=== PATIENT | male | born 1965 | race Caucasian/White ===

== ENCOUNTER → 2018-09-19 | Outpatient (CLI) | payer OTHER, MEDICARE | END | disposition home or self-care (01) | LOC: RAD 12:04 | PROVIDERS: ATTEND Family Medicine | DX: M51.16 Intervertebral disc disorders with radiculopathy, lumbar region (principal); M48.07 Spinal stenosis, lumbosacral region; M47.27 Other spondylosis with radiculopathy, lumbosacral region | CPT/HCPCS: 72148 ==

== ENCOUNTER 2018-09-23 13:24 | Inpatient (IN) | payer OTHER, MEDICARE ==
[~2018-09-23] VITALS: Ht 175.3 cm; Wt 141.4 kg
--- NOTE | 2018-09-23 13:46 | NUR ---
TASK RN - PT PRESENTS TO ED C/O WORSENING LEG PAIN AND WEAKNESS. PT HAS HX OF BACK SURGERY, PT WITH CHRISTIANO LOW. PT STATES HE SLIPPED ON THE ICE AND FELL HURTING HIS BACK, PAIN, WEAKNESS AND SENSATION HAS BEEN WORSENING SINCE. REFERRED TO MD BY CHRISTIANO LOW. PT HAD MRI DONE 5 DAYS AGO THROUGH [facility] [place]. PT HAS BEEN AMBULATING WITH CRUTCHES SINCE FALL.
[2018-09-23] MEDS ORDERED: OXYcodone/APAP 7.5/325MG TABLET PO ONE (14:00)
[2018-09-23] MEDS ORDERED: OXYcodone/APAP 7.5/325MG TABLET ONE (14:08)
--- NOTE | 2018-09-23 14:33 | NUR ---
Provided medication per EMAR. Placed PIV for MRI. Rep for pt's pacemaker contacted by Brad SHAFFER, will be at hospital approximately at 1500. MRI states ED RN needs to be at bedside during MRI when pacemaker is turned off. ED charge loader aware.
--- NOTE | 2018-09-23 15:36 | NUR ---
Pt transported to MRI ambulatory by MRI staff. ED RN not notified prior. Rep. for pt's AED is with pt, ED RN and ED staff not notified. Pt at MRI. ED RN to be with pt at MRI for monitoring.
[2018-09-23] MEDS ORDERED: GADOBUTROL 10 MMOL/10 ML PFS ONE (16:04)
--- NOTE | 2018-09-23 16:16 | NUR ---
Pt back to ED from MRI. DUTCH. Reconnecting pt to all monitors. All safety measures in place. Call light within reach.
[2018-09-23] MEDS ORDERED: VERA120C4 PO (16:34)
[2018-09-23] MEDS ORDERED: METO25TA35 PO (16:34)
[2018-09-23] MEDS ORDERED: FURO80TA3 PO (16:34)
[2018-09-23] MEDS ORDERED: LEVO75TA5 PO (16:40)
[2018-09-23] MEDS ORDERED: LOSA50TA14 PO (16:40)
[2018-09-23] MEDS ORDERED: ALLO300T PO (16:40)
[2018-09-23] MEDS ORDERED: AMIO100T4 PO (16:40)
[2018-09-23] MEDS ORDERED: GLIP5TAB10 PO (16:40)
[2018-09-23] MEDS ORDERED: ATOR40TA78 PO (16:40)
[2018-09-23] MEDS ORDERED: SPIR25TA5 PO (16:40)
--- NOTE | 2018-09-23 18:07 | NUR ---
Pt resting on guamisha. NADN. No needs requested. All safety measures in place. Call light within reach.
[2018-09-23] MEDS ORDERED: methylPREDNISolone SOD SUCC 40 MG/ML ONE (18:25)
[2018-09-23] MEDS ORDERED: SODIUM CHLORIDE FLUSH 10ML SYR IVF ONE (18:30)
[2018-09-23] MEDS ORDERED: methylPREDNISolone SOD SUCC 40 MG/ML IV SCH (18:30)
[2018-09-23 18:36] LABS: BASOPHILS # (AUTO) 0.18 x10^3/uL (0-0.1); BASOPHILS % (AUTO) 2 % (0-1); EOSINOPHILS # (AUTO) 0.24 x10^3/uL (0-0.4); EOSINOPHILS % (AUTO) 2 % (1-7); LYMPHOCYTES # (AUTO) 3.54 x10^3/uL (1-3.4); LYMPHOCYTES % (AUTO) 32 % (22-44); MD NO; MEAN CORPUSCULAR HEMOGLOBIN 32.3 pg (27.5-34.5); MEAN CORPUSCULAR HGB CONC 34.3 g/dL (33.2-36.2); MEAN CORPUSCULAR VOLUME 94.2 fL (81-97); MEAN PLATELET VOLUME 8.2 fL (7.4-10.4); MONOCYTES # (AUTO) 0.99 x10^3/uL (0.2-0.8); MONOCYTES % (AUTO) 9 % (2-9); NEUTROPHILS # (AUTO) 6.07 x10^3/uL (1.8-6.8); NEUTROPHILS % (AUTO) 55 % (42-75); PLATELET COUNT 323 x10^3/uL (130-400); RED BLOOD COUNT 4.89 x10^6/uL (4.38-5.82); RED CELL DISTRIBUTION WIDTH 14.4 % (9.4-14.8)
[2018-09-23 18:47] LABS: ALBUMIN 4.1 g/dL (3.4-5.0); ANION GAP 6 mmol/L (5-15); CALCIUM 9.3 mg/dL (8.5-10.1); CHLORIDE 103 mmol/L (98-107); CREATININE 1.32 mg/dL (0.7-1.3)
[2018-09-23] MEDS ORDERED: methylPREDNISolone SOD SUCC 40 MG/ML IV ONE (19:00)
[2018-09-23] MEDS ORDERED: LIDODERM 5% PATCH TD PRN (19:00)
[2018-09-23] MEDS ORDERED: ONDANSETRON 2MG/ML, 2ML IVPush PRN (19:00)
[2018-09-23] MEDS ORDERED: LABETALOL 5 MG/ML SYRINGE IVPush PRN (19:00)
[2018-09-23] MEDS ORDERED: DOCUSATE 100 MG CAPSULE PO PRN (19:00)
[2018-09-23] MEDS ORDERED: BISACODYL 10 MG SUPP PR PRN (19:00)
[2018-09-23] MEDS ORDERED: ACETAMINOPHEN 325 MG TABLET PO PRN (19:00)
--- NOTE | 2018-09-23 19:17 | NUR ---
pt resting on britt amato needs, monitors in place, sideraisl up x2, call light within reach. Addendum: 09/23/18 at 1918 by AUSTYN pt awaiting room to be cleaned for transfer to floor
[2018-09-23 19:50] VITALS: BP 129/77
[2018-09-23] MEDS ORDERED: LABETALOL 20 MG/4 ML IVPush PRN (20:30)
[2018-09-23] MEDS: ATORVASTATIN 40 MG TABLET PO SCH (22:30)
[2018-09-23] MEDS ORDERED: TEMAZEPAM 15 MG CAPSULE PO PRN (22:30)
[2018-09-23] MEDS: INSULIN LISPRO 100 UNITS/ML, PEN SQ-INSULIN SCH (22:31)
[2018-09-24 01:38] VITALS: BP 145/77
[2018-09-24] MEDS: OXYcodone/APAP 5/325MG TABLET PO PRN ×3 (01:56→20:52)
[2018-09-24 05:08] LABS: BASOPHILS # (AUTO) 0.01 x10^3/uL (0-0.1); BASOPHILS % (AUTO) 0 % (0-1); EOSINOPHILS % (AUTO) 0 % (1-7); LYMPHOCYTES # (AUTO) 0.98 x10^3/uL (1-3.4); LYMPHOCYTES % (AUTO) 14 % (22-44); MD NO; MEAN CORPUSCULAR HEMOGLOBIN 32.3 pg (27.5-34.5); MEAN CORPUSCULAR HGB CONC 34.1 g/dL (33.2-36.2); MEAN CORPUSCULAR VOLUME 94.8 fL (81-97); MEAN PLATELET VOLUME 8.1 fL (7.4-10.4); MONOCYTES # (AUTO) 0.12 x10^3/uL (0.2-0.8); MONOCYTES % (AUTO) 2 % (2-9); NEUTROPHILS # (AUTO) 5.89 x10^3/uL (1.8-6.8); NEUTROPHILS % (AUTO) 84 % (42-75); PLATELET COUNT 280 x10^3/uL (130-400); RED BLOOD COUNT 4.77 x10^6/uL (4.38-5.82); RED CELL DISTRIBUTION WIDTH 14.5 % (9.4-14.8)
[2018-09-24 05:19] LABS: ANION GAP 7 mmol/L (5-15); CALCIUM 9.3 mg/dL (8.5-10.1); CHLORIDE 104 mmol/L (98-107)
[2018-09-24 05:20] LABS: CREATININE 1.17 mg/dL (0.7-1.3)
[2018-09-24] MEDS: INSULIN LISPRO 100 UNITS/ML, PEN SQ-INSULIN SCH ×4 (07:08→21:04)
[2018-09-24 07:11] VITALS: BP 131/76
[2018-09-24] MEDS ORDERED: METOPROLOL TARTRATE 25 MG TABLET PO SCH (09:00)
[2018-09-24] MEDS ORDERED: VERAPAMIL ER 120MG TABLET.ER PO SCH (09:00)
[2018-09-24] MEDS: AMIODARONE 200 MG TABLET PO SCH (09:30)
[2018-09-24] MEDS ORDERED: ACETAMINOPHEN 325 MG TABLET PO PRN (09:30)
[2018-09-24] MEDS: FUROSEMIDE 80 MG TABLET PO SCH (09:31)
[2018-09-24] MEDS: SPIRONOLACTONE 25 MG TABLET PO SCH (09:31)
[2018-09-24] MEDS: ALLOPURINOL 300 MG TABLET PO SCH (09:31)
[2018-09-24] MEDS: GABAPENTIN 300 MG CAPSULE PO SCH ×3 (09:31→20:53)
[2018-09-24] MEDS: LOSARTAN 50MG TABLET PO SCH (09:32)
[2018-09-24] MEDS: LEVOTHYROXINE 75 MCG TABLET PO SCH (09:41)
[2018-09-24] MEDS ORDERED: methylPREDNISolone 4mg DOSE PACK ONE (10:52)
[2018-09-24 14:17] VITALS: BP 152/75
[2018-09-24 17:14] VITALS: BP 146/78
[2018-09-24] MEDS: CARVEDILOL 12.5 MG TABLET PO SCH (17:16)
[2018-09-24] MEDS ORDERED: CARVEDILOL 6.25 MG TABLET PO SCH (18:00)
[2018-09-24 20:29] VITALS: BP 123/68
[2018-09-24] MEDS: ATORVASTATIN 40 MG TABLET PO SCH (20:53)
[2018-09-24] MEDS ORDERED: INSU100V8 SQ (21:06)
[2018-09-24] MEDS: INSULIN GLARGINE 100 UNITS/ML, PEN SQ-INSULIN SCH (22:44)
[2018-09-25 01:41] VITALS: BP 145/71
[2018-09-25 05:42] LABS: HEMOGLOBIN A1C 7.3 % (4.2-6.3)
[2018-09-25] MEDS: CARVEDILOL 12.5 MG TABLET PO SCH ×2 (06:31→18:15)
[2018-09-25 06:32] VITALS: BP 130/67
[2018-09-25] MEDS: LEVOTHYROXINE 75 MCG TABLET PO SCH (06:32)
[2018-09-25] MEDS: INSULIN LISPRO 100 UNITS/ML, PEN SQ-INSULIN SCH ×4 (07:20→21:21)
[2018-09-25] MEDS: AMIODARONE 200 MG TABLET PO SCH (08:50)
[2018-09-25] MEDS: SPIRONOLACTONE 25 MG TABLET PO SCH (08:50)
[2018-09-25] MEDS: GABAPENTIN 300 MG CAPSULE PO SCH ×3 (08:51→21:20)
[2018-09-25] MEDS: ALLOPURINOL 300 MG TABLET PO SCH (08:51)
[2018-09-25] MEDS: LOSARTAN 50MG TABLET PO SCH (08:51)
[2018-09-25] MEDS: FUROSEMIDE 80 MG TABLET PO SCH (08:51)
[2018-09-25 10:22] LABS: INTERNATIONAL NORMALIZED RATIO 0.98 (0.93-1.1); PROTHROMBIN TIME 10.3 Seconds (9.6-11.5)
[2018-09-25 10:23] LABS: ANION GAP 9 mmol/L (5-15); CALCIUM 8.7 mg/dL (8.5-10.1); CHLORIDE 104 mmol/L (98-107); CREATININE 1.06 mg/dL (0.7-1.3)
[2018-09-25 12:44] LABS: MICROSCOPIC NOT IND
[2018-09-25 13:53] VITALS: BP 162/91
[2018-09-25] MEDS: OXYcodone/APAP 5/325MG TABLET PO PRN ×2 (13:56→21:19)
[2018-09-25 19:44] VITALS: BP 146/64
[2018-09-25] MEDS ORDERED: TEMAZEPAM 15 MG CAPSULE ONE (21:11)
[2018-09-25] MEDS: ATORVASTATIN 40 MG TABLET PO SCH (21:20)
[2018-09-25] MEDS: TEMAZEPAM 30 MG CAPSULE PO PRN (21:20)
[2018-09-25] MEDS: INSULIN GLARGINE 100 UNITS/ML, PEN SQ-INSULIN SCH (21:21)
[2018-09-26 03:17] VITALS: BP 143/68
[2018-09-26] MEDS: CARVEDILOL 12.5 MG TABLET PO SCH ×2 (06:46→18:06)
[2018-09-26] MEDS: LEVOTHYROXINE 75 MCG TABLET PO SCH (06:46)
[2018-09-26] MEDS: INSULIN LISPRO 100 UNITS/ML, PEN SQ-INSULIN SCH ×4 (07:32→21:00)
[2018-09-26 08:26] VITALS: BP 148/96
[2018-09-26] MEDS: LISINOPRIL 5 MG TABLET PO SCH (08:32)
[2018-09-26] MEDS: FUROSEMIDE 80 MG TABLET PO SCH (08:33)
[2018-09-26] MEDS: AMIODARONE 200 MG TABLET PO SCH (08:33)
[2018-09-26] MEDS: ALLOPURINOL 300 MG TABLET PO SCH (08:33)
[2018-09-26] MEDS: GABAPENTIN 300 MG CAPSULE PO SCH ×3 (08:33→21:23)
[2018-09-26] MEDS: SPIRONOLACTONE 25 MG TABLET PO SCH (08:34)
[2018-09-26] MEDS: LOSARTAN 50MG TABLET PO SCH (08:34)
[2018-09-26] MEDS: OXYcodone/APAP 5/325MG TABLET PO PRN ×2 (09:40→21:26)
[2018-09-26 14:13] VITALS: BP 112/60
[2018-09-26 19:17] VITALS: BP 114/76
[2018-09-26] MEDS: ATORVASTATIN 40 MG TABLET PO SCH (21:23)
[2018-09-26] MEDS: INSULIN GLARGINE 100 UNITS/ML, PEN SQ-INSULIN SCH (21:23)
[2018-09-27 01:07] VITALS: BP 105/70
[2018-09-27] MEDS: CARVEDILOL 12.5 MG TABLET PO SCH ×2 (06:00→18:00)
[2018-09-27] MEDS: LEVOTHYROXINE 75 MCG TABLET PO SCH (06:21)
[2018-09-27] MEDS: INSULIN LISPRO 100 UNITS/ML, PEN SQ-INSULIN SCH ×4 (06:29→21:00)
[2018-09-27 08:05] VITALS: BP 154/99
[2018-09-27] MEDS: LISINOPRIL 5 MG TABLET PO SCH (08:10)
[2018-09-27] MEDS: AMIODARONE 200 MG TABLET PO SCH (08:10)
[2018-09-27] MEDS: GABAPENTIN 300 MG CAPSULE PO SCH ×3 (08:10→21:00)
[2018-09-27] MEDS: SPIRONOLACTONE 25 MG TABLET PO SCH (08:10)
[2018-09-27] MEDS: ALLOPURINOL 300 MG TABLET PO SCH (08:10)
[2018-09-27] MEDS: LOSARTAN 50MG TABLET PO SCH (08:11)
[2018-09-27] MEDS ORDERED: FUROSEMIDE 40 MG TABLET PO SCH (09:00)
[2018-09-27] MEDS: SODIUM CHLORIDE 0.9% 1,000 ML IV SCH (11:16)
[2018-09-27] MEDS: OXYcodone/APAP 5/325MG TABLET PO PRN (11:48)
[2018-09-27] MEDS ORDERED: PHENYLEPHRINE 10 MG/ML ONE (14:27)
[2018-09-27 15:32] VITALS: BP 139/91
[2018-09-27] MEDS ORDERED: BUPIVACAINE 0.25% ONE (16:08)
[2018-09-27] MEDS ORDERED: BUPIVACAINE/PF-EPI 0.5% 1:200K ONE (16:08)
[2018-09-27] MEDS ORDERED: THROMBIN 20,000 UNIT VIAL TP ONE (16:09)
[2018-09-27] MEDS ORDERED: BACITRACIN 50,000 UNIT ONE (16:09)
[2018-09-27] MEDS ORDERED: BUPIVACAINE LIPOSOME/PF 10ML INFIL ONE (17:23)
[2018-09-27] MEDS ORDERED: MIDAZOLAM 1 MG/ML, 2ML ONE (18:14)
[2018-09-27] MEDS ORDERED: FENTANYL PF 250 MCG/5ML ONE ×2 (18:17→18:57)
[2018-09-27] MEDS ORDERED: PROPOFOL 50 ML ONE ×2 (18:18→20:59)
[2018-09-27] MEDS ORDERED: BUPIVACAINE/PF-EPI 0.5% 1:200K INFIL ONE (19:16)
[2018-09-27] MEDS ORDERED: PROPOFOL 100 ML ONE (19:24)
[2018-09-27] MEDS ORDERED: PROMETHAZINE 25 MG/ML, 1ML IV PRN (20:00)
[2018-09-27] MEDS ORDERED: ACETAMINOPHEN 325 MG TABLET PO PRN (20:00)
[2018-09-27] MEDS ORDERED: OXYcodone 5 MG/5 ML ORAL.SOL UDC PO PRN (20:00)
[2018-09-27] MEDS ORDERED: ONDANSETRON ODT 8 MG PO PRN (20:00)
[2018-09-27] MEDS ORDERED: ONDANSETRON 2MG/ML, 2ML IV PRN (20:00)
[2018-09-27] MEDS ORDERED: FENTANYL PF 100 MCG/2ML IV PRN (20:00)
[2018-09-27] MEDS ORDERED: DIAZEPAM 5 MG/ML, 10ML VIAL IVPush PRN (20:00)
[2018-09-27] MEDS: ATORVASTATIN 40 MG TABLET PO SCH (21:00)
[2018-09-27] MEDS: INSULIN GLARGINE 100 UNITS/ML, PEN SQ-INSULIN SCH (21:00)
[2018-09-27] MEDS ORDERED: NEOSPORIN OINT, 15GM ONE (21:36)
[2018-09-27] MEDS ORDERED: SUCCINYLCHOLINE 20 MG/ML, 10ML ONE (21:53)
[2018-09-27] MEDS ORDERED: CEFAZOLIN 1,000 MG ONE (21:53)
[2018-09-27] MEDS ORDERED: ROCURONIUM 10MG/ML,5ML ONE (21:53)
[2018-09-27] MEDS ORDERED: DEXAMETHASONE 4 MG/ML, 1ML ONE (21:53)
[2018-09-27] MEDS ORDERED: NEOSTIGMINE 1 MG/ML, 10ML ONE (21:53)
[2018-09-27] MEDS ORDERED: GLYCOPYRROLATE 0.2MG/1ML, 5ML ONE (21:53)
[2018-09-27] MEDS ORDERED: PROPOFOL 10 MG/ML, 20ML ONE (21:53)
[2018-09-27] MEDS ORDERED: ONDANSETRON 2MG/ML, 2ML ONE (21:53)
[2018-09-27] MEDS ORDERED: HYDROmorphone 1 MG/ML, 1ML AMP ONE (22:20)
[2018-09-27] MEDS ORDERED: OXYcodone 5 MG/5 ML ORAL.SOL UDC ONE (22:21)
[2018-09-27] MEDS: HYDROmorphone 2 MG/ML, 1ML IVPush PRN ×4 (22:25→23:53)
[2018-09-28] MEDS: SODIUM CHLORIDE 0.9% 1,000 ML IV SCH ×2 (01:18→04:06)
[2018-09-28 01:24] VITALS: BP 113/75
[2018-09-28] MEDS ORDERED: FUROSEMIDE 80 MG TABLET PO SCH (01:24)
[2018-09-28] MEDS ORDERED: PHARMACY MAY ADJ FOR RENAL FX MC PRN (01:30)
[2018-09-28] MEDS: METOPROLOL MC SCH ×2 (01:30→10:31)
[2018-09-28] MEDS ORDERED: LABETALOL 5MG/ML, 20ML IV PRN (02:00)
[2018-09-28] MEDS: LACTATED RINGERS 1,000 ML IV SCH ×3 (02:00→20:50)
[2018-09-28] MEDS ORDERED: VANCOMYCIN PER PHARMACY MC PRN (02:00)
[2018-09-28] MEDS ORDERED: morphine SULFATE 10 MG/ML, 1ML IV PRN (02:00)
[2018-09-28] MEDS: OXYcodone/APAP 5/325MG TABLET PO PRN ×4 (02:03→20:57)
[2018-09-28] MEDS ORDERED: PHARMACOKINETIC MONITORING MC PRN (02:30)
[2018-09-28] MEDS ORDERED: PHARMACOKINETIC CONSULTATION MC ONE (02:30)
[2018-09-28] MEDS: VANCOMYCIN 1,900 MG in SODIUM CHLORIDE 0.9% 250 ML IV SCH ×2 (04:04→17:28)
[2018-09-28] MEDS: CARVEDILOL 12.5 MG TABLET PO SCH ×2 (06:00→17:19)
[2018-09-28] MEDS: ENOXAPARIN 30 MG/0.3 ML SQ SCH ×2 (06:00→17:28)
[2018-09-28 06:08] LABS: CHLORIDE 107 mmol/L (98-107)
[2018-09-28 06:15] LABS: ANION GAP 6 mmol/L (5-15); CALCIUM 8.6 mg/dL (8.5-10.1); CREATININE 0.89 mg/dL (0.7-1.3)
[2018-09-28 06:19] LABS: BASOPHILS # (AUTO) 0.01 x10^3/uL (0-0.1); BASOPHILS % (AUTO) 0 % (0-1); EOSINOPHILS % (AUTO) 0 % (1-7); LYMPHOCYTES # (AUTO) 1.28 x10^3/uL (1-3.4); LYMPHOCYTES % (AUTO) 9 % (22-44); MD NO; MEAN CORPUSCULAR HGB CONC 33.8 g/dL (33.2-36.2); MEAN CORPUSCULAR VOLUME 94.8 fL (81-97); MEAN PLATELET VOLUME 8.3 fL (7.4-10.4); MONOCYTES # (AUTO) 0.98 x10^3/uL (0.2-0.8); MONOCYTES % (AUTO) 7 % (2-9); NEUTROPHILS # (AUTO) 11.75 x10^3/uL (1.8-6.8); NEUTROPHILS % (AUTO) 84 % (42-75); PLATELET COUNT 300 x10^3/uL (130-400); RED BLOOD COUNT 5.03 x10^6/uL (4.38-5.82); RED CELL DISTRIBUTION WIDTH 14.3 % (9.4-14.8)
[2018-09-28] MEDS: LEVOTHYROXINE 75 MCG TABLET PO SCH (06:42)
[2018-09-28 06:45] VITALS: BP 111/71
[2018-09-28] MEDS: METHOCARBAMOL 750 MG TABLET PO PRN ×2 (06:48→14:44)
[2018-09-28] MEDS: INSULIN LISPRO 100 UNITS/ML, PEN SQ-INSULIN SCH ×4 (08:16→20:59)
[2018-09-28] MEDS: AMIODARONE 200 MG TABLET PO SCH (08:16)
[2018-09-28] MEDS: LOSARTAN 50MG TABLET PO SCH (08:16)
[2018-09-28] MEDS: ALLOPURINOL 300 MG TABLET PO SCH (08:17)
[2018-09-28] MEDS: SPIRONOLACTONE 25 MG TABLET PO SCH (08:17)
[2018-09-28] MEDS: LISINOPRIL 5 MG TABLET PO SCH (08:17)
[2018-09-28] MEDS: FAMOTIDINE 20 MG TABLET PO SCH ×2 (08:18→20:57)
[2018-09-28] MEDS: FUROSEMIDE 80 MG TABLET PO SCH (08:18)
[2018-09-28] MEDS: GABAPENTIN 300 MG CAPSULE PO SCH ×3 (08:18→20:57)
[2018-09-28] MEDS: VERAPAMIL ER 120MG TABLET.ER PO SCH (08:22)
[2018-09-28 12:05] VITALS: BP 101/70
[2018-09-28 17:00] VITALS: BP 112/75
[2018-09-28 18:55] VITALS: BP 123/81
[2018-09-28] MEDS: ATORVASTATIN 40 MG TABLET PO SCH (20:57)
[2018-09-28] MEDS: INSULIN GLARGINE 100 UNITS/ML, PEN SQ-INSULIN SCH (21:03)
[2018-09-29 00:20] VITALS: BP 105/71
[2018-09-29] MEDS ORDERED: DEXAMETHASONE 4 MG/ML, 1ML IVPush SCH (00:45)
[2018-09-29 05:15] LABS: BASOPHILS # (AUTO) 0.06 x10^3/uL (0-0.1); BASOPHILS % (AUTO) 1 % (0-1); EOSINOPHILS # (AUTO) 0.12 x10^3/uL (0-0.4); EOSINOPHILS % (AUTO) 1 % (1-7); LYMPHOCYTES # (AUTO) 2.71 x10^3/uL (1-3.4); LYMPHOCYTES % (AUTO) 23 % (22-44); MD NO; MEAN CORPUSCULAR HEMOGLOBIN 32.5 pg (27.5-34.5); MEAN CORPUSCULAR HGB CONC 34.6 g/dL (33.2-36.2); MEAN CORPUSCULAR VOLUME 93.9 fL (81-97); MEAN PLATELET VOLUME 8.3 fL (7.4-10.4); MONOCYTES # (AUTO) 1.31 x10^3/uL (0.2-0.8); MONOCYTES % (AUTO) 11 % (2-9); NEUTROPHILS # (AUTO) 7.72 x10^3/uL (1.8-6.8); NEUTROPHILS % (AUTO) 65 % (42-75); PLATELET COUNT 264 x10^3/uL (130-400); RED BLOOD COUNT 4.87 x10^6/uL (4.38-5.82); RED CELL DISTRIBUTION WIDTH 14.4 % (9.4-14.8)
[2018-09-29 05:30] LABS: ANION GAP 6 mmol/L (5-15); CALCIUM 8.6 mg/dL (8.5-10.1); CHLORIDE 105 mmol/L (98-107); CREATININE 1.13 mg/dL (0.7-1.3)
[2018-09-29] MEDS: VANCOMYCIN 1,900 MG in SODIUM CHLORIDE 0.9% 250 ML IV SCH ×2 (05:36→17:19)
[2018-09-29] MEDS: OXYcodone/APAP 5/325MG TABLET PO PRN ×3 (05:53→17:24)
[2018-09-29] MEDS: LEVOTHYROXINE 75 MCG TABLET PO SCH (05:53)
[2018-09-29] MEDS: ENOXAPARIN 30 MG/0.3 ML SQ SCH ×2 (05:54→17:22)
[2018-09-29] MEDS: CARVEDILOL 12.5 MG TABLET PO SCH (05:54)
[2018-09-29] MEDS: INSULIN LISPRO 100 UNITS/ML, PEN SQ-INSULIN SCH ×4 (06:19→21:00)
[2018-09-29 08:21] VITALS: BP 108/61
[2018-09-29] MEDS: GABAPENTIN 300 MG CAPSULE PO SCH ×3 (08:29→21:39)
[2018-09-29] MEDS: LACTATED RINGERS 1,000 ML IV SCH ×2 (08:29→21:39)
[2018-09-29] MEDS: SPIRONOLACTONE 25 MG TABLET PO SCH (08:29)
[2018-09-29] MEDS: FAMOTIDINE 20 MG TABLET PO SCH (08:30)
[2018-09-29] MEDS: VERAPAMIL ER 120MG TABLET.ER PO SCH (08:30)
[2018-09-29] MEDS: LOSARTAN 50MG TABLET PO SCH (08:30)
[2018-09-29] MEDS: FUROSEMIDE 80 MG TABLET PO SCH (08:30)
[2018-09-29] MEDS: ALLOPURINOL 300 MG TABLET PO SCH (08:30)
[2018-09-29] MEDS: AMIODARONE 200 MG TABLET PO SCH (08:30)
[2018-09-29] MEDS: LISINOPRIL 5 MG TABLET PO SCH (08:30)
[2018-09-29] MEDS: METHOCARBAMOL 750 MG TABLET PO PRN (08:35)
[2018-09-29] MEDS ORDERED: SODIUM CHLORIDE 0.9% 1,000ML IVBOLUS ONE (13:00)
[2018-09-29 13:37] VITALS: BP 98/60
[2018-09-29] MEDS: CARVEDILOL 3.125 MG TABLET PO SCH (17:22)
[2018-09-29 19:15] VITALS: BP 134/62
[2018-09-29] MEDS: ATORVASTATIN 40 MG TABLET PO SCH (21:39)
[2018-09-29] MEDS: INSULIN GLARGINE 100 UNITS/ML, PEN SQ-INSULIN SCH (21:47)
[2018-09-29] MEDS ORDERED: TEMAZEPAM 15 MG CAPSULE ONE (22:11)
[2018-09-29] MEDS: HYDROcodone/APAP 10/325 MG TABLET PO PRN (22:12)
[2018-09-29] MEDS: TEMAZEPAM 30 MG CAPSULE PO PRN (22:12)
[2018-09-30 03:08] VITALS: BP 123/56
[2018-09-30] MEDS: HYDROcodone/APAP 10/325 MG TABLET PO PRN (03:27)
[2018-09-30] MEDS: LACTATED RINGERS 1,000 ML IV SCH (05:19)
[2018-09-30] MEDS: LEVOTHYROXINE 75 MCG TABLET PO SCH (06:11)
[2018-09-30] MEDS: CARVEDILOL 3.125 MG TABLET PO SCH ×2 (06:11→17:57)
[2018-09-30] MEDS: ENOXAPARIN 30 MG/0.3 ML SQ SCH ×2 (06:11→17:57)
[2018-09-30] MEDS: INSULIN LISPRO 100 UNITS/ML, PEN SQ-INSULIN SCH ×4 (06:34→20:42)
[2018-09-30 07:50] VITALS: BP 98/60
[2018-09-30] MEDS: DOXYCYCLINE 100MG TABLET PO SCH ×2 (09:06→20:37)
[2018-09-30] MEDS: GABAPENTIN 300 MG CAPSULE PO SCH ×3 (09:06→20:37)
[2018-09-30 09:08] VITALS: BP 132/71
[2018-09-30] MEDS: AMIODARONE 200 MG TABLET PO SCH (09:08)
[2018-09-30] MEDS: OXYcodone/APAP 5/325MG TABLET PO PRN ×3 (09:13→20:37)
[2018-09-30] MEDS: ALLOPURINOL 300 MG TABLET PO SCH (09:13)
[2018-09-30 13:19] VITALS: BP 157/70
[2018-09-30 17:53] VITALS: BP 116/58
[2018-09-30] MEDS: METHOCARBAMOL 750 MG TABLET PO PRN (18:01)
[2018-09-30 18:45] VITALS: BP 103/58
[2018-09-30] MEDS: ATORVASTATIN 40 MG TABLET PO SCH (20:37)
[2018-09-30] MEDS: INSULIN GLARGINE 100 UNITS/ML, PEN SQ-INSULIN SCH (20:43)
[2018-10-01] MEDS: OXYcodone/APAP 5/325MG TABLET PO PRN ×5 (00:25→21:07)
[2018-10-01 02:59] VITALS: BP 109/63
[2018-10-01] MEDS: CARVEDILOL 3.125 MG TABLET PO SCH ×2 (05:32→17:08)
[2018-10-01] MEDS: LEVOTHYROXINE 75 MCG TABLET PO SCH (05:32)
[2018-10-01] MEDS: ENOXAPARIN 30 MG/0.3 ML SQ SCH ×2 (05:33→17:11)
[2018-10-01] MEDS: INSULIN LISPRO 100 UNITS/ML, PEN SQ-INSULIN SCH ×4 (06:10→21:00)
[2018-10-01 06:30] LABS: BASOPHILS # (AUTO) 0.07 x10^3/uL (0-0.1); BASOPHILS % (AUTO) 1 % (0-1); EOSINOPHILS # (AUTO) 0.27 x10^3/uL (0-0.4); EOSINOPHILS % (AUTO) 3 % (1-7); LYMPHOCYTES # (AUTO) 2.25 x10^3/uL (1-3.4); LYMPHOCYTES % (AUTO) 26 % (22-44); MD NO; MEAN CORPUSCULAR HEMOGLOBIN 32.5 pg (27.5-34.5); MEAN CORPUSCULAR HGB CONC 34.1 g/dL (33.2-36.2); MEAN CORPUSCULAR VOLUME 95.4 fL (81-97); MEAN PLATELET VOLUME 8.4 fL (7.4-10.4); MONOCYTES # (AUTO) 0.98 x10^3/uL (0.2-0.8); MONOCYTES % (AUTO) 11 % (2-9); NEUTROPHILS # (AUTO) 5.25 x10^3/uL (1.8-6.8); NEUTROPHILS % (AUTO) 60 % (42-75); PLATELET COUNT 238 x10^3/uL (130-400); RED BLOOD COUNT 4.13 x10^6/uL (4.38-5.82); RED CELL DISTRIBUTION WIDTH 14.1 % (9.4-14.8)
[2018-10-01 06:35] LABS: ANION GAP 4 mmol/L (5-15); CALCIUM 9.1 mg/dL (8.5-10.1); CHLORIDE 105 mmol/L (98-107)
[2018-10-01 06:41] LABS: ALANINE AMINOTRANSFERASE 29 U/L (12-78); ALKALINE PHOSPHATASE 52 U/L (45-117); BILIRUBIN,TOTAL 1.6 mg/dL (0.2-1.0); CREATININE 0.79 mg/dL (0.7-1.3); TOTAL PROTEIN 7.1 g/dL (6.4-8.2)
[2018-10-01 08:08] VITALS: BP 137/55
[2018-10-01] MEDS: METHOCARBAMOL 750 MG TABLET PO PRN ×2 (08:58→17:01)
[2018-10-01] MEDS: AMIODARONE 200 MG TABLET PO SCH (08:59)
[2018-10-01] MEDS: GABAPENTIN 300 MG CAPSULE PO SCH ×3 (08:59→21:06)
[2018-10-01] MEDS: ALLOPURINOL 300 MG TABLET PO SCH (09:00)
[2018-10-01] MEDS: DOXYCYCLINE 100MG TABLET PO SCH ×2 (09:00→21:06)
[2018-10-01 13:59] VITALS: BP 119/72
[2018-10-01] MEDS: FUROSEMIDE 20 MG TABLET PO SCH (17:08)
[2018-10-01 17:11] VITALS: BP 118/86
[2018-10-01 19:40] VITALS: BP 148/75
[2018-10-01] MEDS: ATORVASTATIN 40 MG TABLET PO SCH (21:06)
[2018-10-01] MEDS: INSULIN GLARGINE 100 UNITS/ML, PEN SQ-INSULIN SCH (21:11)
[2018-10-02 02:38] VITALS: BP 151/75
[2018-10-02] MEDS: OXYcodone/APAP 5/325MG TABLET PO PRN ×4 (04:44→22:57)
[2018-10-02] MEDS: CARVEDILOL 3.125 MG TABLET PO SCH ×2 (04:45→18:31)
[2018-10-02] MEDS: LEVOTHYROXINE 75 MCG TABLET PO SCH (04:45)
[2018-10-02] MEDS: ENOXAPARIN 30 MG/0.3 ML SQ SCH ×2 (04:48→18:32)
[2018-10-02] MEDS: INSULIN LISPRO 100 UNITS/ML, PEN SQ-INSULIN SCH ×4 (06:11→21:00)
[2018-10-02 07:42] VITALS: BP 156/81
[2018-10-02 08:04] LABS: BASOPHILS # (AUTO) 0.04 x10^3/uL (0-0.1); BASOPHILS % (AUTO) 1 % (0-1); EOSINOPHILS # (AUTO) 0.32 x10^3/uL (0-0.4); EOSINOPHILS % (AUTO) 4 % (1-7); LYMPHOCYTES # (AUTO) 2.02 x10^3/uL (1-3.4); LYMPHOCYTES % (AUTO) 25 % (22-44); MD NO; MEAN CORPUSCULAR HEMOGLOBIN 31.6 pg (27.5-34.5); MEAN CORPUSCULAR HGB CONC 33.7 g/dL (33.2-36.2); MEAN CORPUSCULAR VOLUME 93.8 fL (81-97); MEAN PLATELET VOLUME 8.5 fL (7.4-10.4); MONOCYTES # (AUTO) 0.94 x10^3/uL (0.2-0.8); MONOCYTES % (AUTO) 12 % (2-9); NEUTROPHILS # (AUTO) 4.67 x10^3/uL (1.8-6.8); NEUTROPHILS % (AUTO) 59 % (42-75); PLATELET COUNT 230 x10^3/uL (130-400); RED BLOOD COUNT 4.08 x10^6/uL (4.38-5.82); RED CELL DISTRIBUTION WIDTH 14.3 % (9.4-14.8)
[2018-10-02 08:15] LABS: ALBUMIN 2.8 g/dL (3.4-5.0); ANION GAP 5 mmol/L (5-15); CALCIUM 8.5 mg/dL (8.5-10.1); CHLORIDE 106 mmol/L (98-107)
[2018-10-02 08:20] LABS: ALANINE AMINOTRANSFERASE 29 U/L (12-78); ALKALINE PHOSPHATASE 51 U/L (45-117); BILIRUBIN,TOTAL 1.5 mg/dL (0.2-1.0); TOTAL PROTEIN 6.5 g/dL (6.4-8.2)
[2018-10-02] MEDS: ALLOPURINOL 300 MG TABLET PO SCH (08:26)
[2018-10-02] MEDS: FUROSEMIDE 20 MG TABLET PO SCH ×2 (08:27→16:27)
[2018-10-02] MEDS: GABAPENTIN 300 MG CAPSULE PO SCH ×3 (08:27→21:09)
[2018-10-02] MEDS: SPIRONOLACTONE 25 MG TABLET PO SCH (08:27)
[2018-10-02] MEDS: DOXYCYCLINE 100MG TABLET PO SCH ×2 (08:27→21:09)
[2018-10-02] MEDS: LOSARTAN 25MG TABLET PO SCH (08:28)
[2018-10-02] MEDS: AMIODARONE 200 MG TABLET PO SCH (08:28)
[2018-10-02] MEDS: METHOCARBAMOL 750 MG TABLET PO PRN ×2 (08:42→18:31)
[2018-10-02 12:47] VITALS: BP 146/78
[2018-10-02 19:43] VITALS: BP 95/68
[2018-10-02] MEDS: ATORVASTATIN 40 MG TABLET PO SCH (21:09)
[2018-10-02] MEDS: INSULIN GLARGINE 100 UNITS/ML, PEN SQ-INSULIN SCH (21:19)
[2018-10-03 01:22] VITALS: BP 104/67
[2018-10-03] MEDS: METHOCARBAMOL 750 MG TABLET PO PRN ×3 (04:47→21:00)
[2018-10-03] MEDS: OXYcodone/APAP 5/325MG TABLET PO PRN ×4 (04:47→21:00)
[2018-10-03 05:05] LABS: BASOPHILS # (AUTO) 0.09 x10^3/uL (0-0.1); BASOPHILS % (AUTO) 1 % (0-1); EOSINOPHILS # (AUTO) 0.29 x10^3/uL (0-0.4); EOSINOPHILS % (AUTO) 4 % (1-7); LYMPHOCYTES # (AUTO) 2.13 x10^3/uL (1-3.4); LYMPHOCYTES % (AUTO) 30 % (22-44); MD NO; MEAN CORPUSCULAR HEMOGLOBIN 32.5 pg (27.5-34.5); MEAN CORPUSCULAR HGB CONC 34.2 g/dL (33.2-36.2); MEAN PLATELET VOLUME 8.8 fL (7.4-10.4); MONOCYTES # (AUTO) 0.81 x10^3/uL (0.2-0.8); MONOCYTES % (AUTO) 11 % (2-9); NEUTROPHILS # (AUTO) 3.81 x10^3/uL (1.8-6.8); NEUTROPHILS % (AUTO) 53 % (42-75); PLATELET COUNT 226 x10^3/uL (130-400); RED BLOOD COUNT 3.87 x10^6/uL (4.38-5.82); RED CELL DISTRIBUTION WIDTH 13.8 % (9.4-14.8)
[2018-10-03 05:13] LABS: ALBUMIN 2.8 g/dL (3.4-5.0); ANION GAP 5 mmol/L (5-15); CALCIUM 8.5 mg/dL (8.5-10.1); CHLORIDE 105 mmol/L (98-107); CREATININE 0.72 mg/dL (0.7-1.3)
[2018-10-03] MEDS: LEVOTHYROXINE 75 MCG TABLET PO SCH (06:20)
[2018-10-03] MEDS: CARVEDILOL 3.125 MG TABLET PO SCH ×2 (06:20→18:29)
[2018-10-03] MEDS: ENOXAPARIN 30 MG/0.3 ML SQ SCH ×2 (06:21→18:29)
[2018-10-03] MEDS ORDERED: POTASSIUM CHLORIDE 20 MEQ TAB.ER.PRT PO ONE ×2 (06:30)
[2018-10-03] MEDS: INSULIN LISPRO 100 UNITS/ML, PEN SQ-INSULIN SCH ×4 (07:00→21:00)
[2018-10-03 07:10] VITALS: BP 144/71
[2018-10-03] MEDS: ALLOPURINOL 300 MG TABLET PO SCH (09:14)
[2018-10-03] MEDS: GABAPENTIN 300 MG CAPSULE PO SCH ×3 (09:14→21:02)
[2018-10-03] MEDS: AMIODARONE 200 MG TABLET PO SCH (09:14)
[2018-10-03] MEDS: DOXYCYCLINE 100MG TABLET PO SCH ×2 (09:15→21:01)
[2018-10-03] MEDS: SPIRONOLACTONE 25 MG TABLET PO SCH (09:15)
[2018-10-03] MEDS: LOSARTAN 25MG TABLET PO SCH (09:15)
[2018-10-03 13:09] VITALS: BP 147/79
[2018-10-03 19:41] VITALS: BP 135/74
[2018-10-03] MEDS: ATORVASTATIN 40 MG TABLET PO SCH (21:00)
[2018-10-03] MEDS: INSULIN GLARGINE 100 UNITS/ML, PEN SQ-INSULIN SCH (21:07)
[2018-10-04 01:13] VITALS: BP 113/75
[2018-10-04] MEDS: OXYcodone/APAP 5/325MG TABLET PO PRN ×3 (01:25→13:01)
[2018-10-04] MEDS: METHOCARBAMOL 750 MG TABLET PO PRN (06:26)
[2018-10-04] MEDS: LEVOTHYROXINE 75 MCG TABLET PO SCH (06:27)
[2018-10-04] MEDS: ENOXAPARIN 30 MG/0.3 ML SQ SCH (06:27)
[2018-10-04] MEDS: CARVEDILOL 3.125 MG TABLET PO SCH (06:27)
[2018-10-04 07:44] VITALS: BP 126/61
[2018-10-04] MEDS: INSULIN LISPRO 100 UNITS/ML, PEN SQ-INSULIN SCH ×3 (08:38→16:30)
[2018-10-04] MEDS ORDERED: DEXAMETHASONE 1 MG TABLET PO SCH (09:00)
[2018-10-04] MEDS ORDERED: FUROSEMIDE 20 MG TABLET PO SCH (09:00)
[2018-10-04] MEDS: LOSARTAN 25MG TABLET PO SCH (09:06)
[2018-10-04] MEDS: SPIRONOLACTONE 25 MG TABLET PO SCH (09:06)
[2018-10-04] MEDS: GABAPENTIN 300 MG CAPSULE PO SCH ×2 (09:06→16:30)
[2018-10-04] MEDS: AMIODARONE 200 MG TABLET PO SCH (09:06)
[2018-10-04] MEDS: ALLOPURINOL 300 MG TABLET PO SCH (09:07)
[2018-10-04] MEDS: DOXYCYCLINE 100MG TABLET PO SCH (09:07)
[2018-10-04 13:51] VITALS: BP 164/94
[2018-10-04] MEDS ORDERED: DEXA1TAB5 PO (14:28)
[2018-10-04] MEDS ORDERED: METH750T2 PO (14:28)
[2018-10-04] MEDS ORDERED: LOSA25TA25 PO (14:28)
[2018-10-04] MEDS ORDERED: SPIR25TA PO (14:28)
[2018-10-04] MEDS ORDERED: CARV3.1212 PO (14:28)
[2018-10-04] MEDS ORDERED: FURO20TA3 PO (14:28)
[2018-10-04] MEDS ORDERED: DOXY100T PO (14:29)
[2018-10-04 14:49] VITALS: BP 154/90
[2018-10-04] MEDS ORDERED: OXYC-307 PO (15:36)
== END 2018-10-04 16:40 | disposition home or self-care (01) | DRG 453 ==
LOC: ED 14:03 → EDIP 17:51 → 4NOR 19:43 → DCLOUNGE 10-04 16:29
PROVIDERS: ADMIT Internal Medicine; ATTEND Internal Medicine
PROC: 0SG0071 Fusion of Lumbar Vertebral Joint with Autologous Tissue Substitute, Posterior Approach, Posterior Column, Open Approach (ICD-10-PCS; 2018-09-27)
PROC: 0SB20ZZ Excision of Lumbar Vertebral Disc, Open Approach (ICD-10-PCS; 2018-09-27)
PROC: 0SG00A0 Fusion of Lumbar Vertebral Joint with Interbody Fusion Device, Anterior Approach, Anterior Column, Open Approach (ICD-10-PCS; principal; 2018-09-27 17:30)
PROC: 01NB0ZZ Release Lumbar Nerve, Open Approach (ICD-10-PCS; 2018-09-28)
PROC: 4A11X4G Monitoring of Peripheral Nervous Electrical Activity, Intraoperative, External Approach (ICD-10-PCS; 2018-09-28)
DX: M48.061 Spinal stenosis, lumbar region without neurogenic claudication (principal); G06.2 Extradural and subdural abscess, unspecified; G83.4 Cauda equina syndrome; D68.69 Other thrombophilia; E87.1 Hypo-osmolality and hyponatremia; I42.1 Obstructive hypertrophic cardiomyopathy; I42.2 Other hypertrophic cardiomyopathy; G95.20 Unspecified cord compression; Z68.42 Body mass index [BMI] 45.0-49.9, adult; E03.9 Hypothyroidism, unspecified; E11.42 Type 2 diabetes mellitus with diabetic polyneuropathy; E11.65 Type 2 diabetes mellitus with hyperglycemia; E66.01 Morbid (severe) obesity due to excess calories; E78.5 Hyperlipidemia, unspecified; G47.33 Obstructive sleep apnea (adult) (pediatric); M10.9 Gout, unspecified; G80.9 Cerebral palsy, unspecified; G83.14 Monoplegia of lower limb affecting left nondominant side; I11.9 Hypertensive heart disease without heart failure; I44.7 Left bundle-branch block, unspecified; I48.91 Unspecified atrial fibrillation; M21.371 Foot drop, right foot; M46.90 Unspecified inflammatory spondylopathy, site unspecified; M51.16 Intervertebral disc disorders with radiculopathy, lumbar region; R29.6 Repeated falls; Z79.4 Long term (current) use of insulin; Z79.899 Other long term (current) drug therapy; Z83.3 Family history of diabetes mellitus; Z95.810 Presence of automatic (implantable) cardiac defibrillator
CPT/HCPCS: 36415; 72100; 72110; 76000; 99285; J3490; 71045; 72131; 72158; 80048; 80053; 81003; 82040; 82533; 82962; 83036; 83735; 84100; 85025; 85610; 85730; 93005; 93306; 93970; 96374; A9585; C1713; C1776; G0378; J0690; J1100; J1170; J1650; J2250; J2405; J2704; J2710; J3010; J3370; J7509; C1760; C1762; C1763; C1769; C1781; J0330; J1815; J2370; J2920; J7030; J7050; J7120

== ENCOUNTER 2020-08-05 12:00 | Outpatient (CLI) | payer OTHER, MEDICARE ==
[~2020-08-05 12:00] MED LIST: ALLO300T PO; AMIO100T4 PO; ATOR40TA78 PO; CARV3.1212 PO; DEXA1TAB5 PO; DOXY100T PO; FURO20TA3 PO; FURO80TA3 PO; GLIP5TAB10 PO; INSU100V8 SQ; LEVO75TA5 PO; LOSA25TA25 PO; LOSA50TA14 PO; METH-640 PO; METO25TA35 PO; OXYC-380 PO; SPIR25TA PO; SPIR25TA5 PO; VERA120C4 PO
== END 2020-08-05 23:59 | disposition home or self-care (01) ==
LOC: RAD 12:00
PROVIDERS: ATTEND Physician Assistant Medical
DX: M54.16 Radiculopathy, lumbar region (principal)
CPT/HCPCS: 72148